=== PATIENT | female | born 1960 | race Caucasian/White ===

== ENCOUNTER 2016-12-01 16:34 | Emergency (ER) | payer MEDICAID ==
[2016-12-01] MEDS ORDERED: KETOROLAC 60 MG/2 ML VIAL IM ONE (17:12)
== END 2016-12-01 19:09 | disposition home or self-care (01) ==
LOC: FASTR 16:34
DX: M54.5 Low back pain (principal); Z79.899 Other long term (current) drug therapy
CPT/HCPCS: 72100; 96372